=== PATIENT | female | born 1970 | race African-American/Black ===

== ENCOUNTER 2020-06-21 09:33 | Emergency (ER) | payer SELFPAY ==
[~2020-06-21] VITALS: Ht 162.6 cm; Wt 80.0 kg
[2020-06-21] MEDS ORDERED: METOPROLOL 1 MG/ML, 5ML ONE (10:27)
[2020-06-21] MEDS ORDERED: METOPROLOL 1 MG/ML, 5ML IVPush ONE (10:30)
[2020-06-21] MEDS ORDERED: SODIUM CHLORIDE FLUSH 10ML SYR IVF ONE (10:30)
[2020-06-21 10:45] LABS: BASOPHILS % (AUTO) 2 % (0-1); EOSINOPHILS % (AUTO) 2 % (1-7); LYMPHOCYTES % (AUTO) 47 % (22-44); MD NO; MEAN CORPUSCULAR HEMOGLOBIN 27.1 pg (27.0-34.8); MEAN CORPUSCULAR HGB CONC 32.8 g/dL (32.4-35.8); MEAN PLATELET VOLUME 9.6 fL (7.4-10.4); MONOCYTES % (AUTO) 7 % (2-9); NEUTROPHILS % (AUTO) 43 % (42-75); PLATELET COUNT 240 x10^3/uL (130-400); RED BLOOD COUNT 5.03 x10^6/uL (3.82-5.3); RED CELL DISTRIBUTION WIDTH 13.7 % (9.6-15.2)
[2020-06-21 10:52] LABS: ALANINE AMINOTRANSFERASE 31 U/L (12-78); ALBUMIN 4.2 g/dL (3.4-5.0); ANION GAP 4 mmol/L (5-15); CALCIUM 8.9 mg/dL (8.5-10.1); CHLORIDE 107 mmol/L (98-107); CREATININE 0.81 mg/dL (0.55-1.02)
[2020-06-21 10:54] LABS: ALKALINE PHOSPHATASE 112 U/L (45-117); BILIRUBIN,TOTAL 0.4 mg/dL (0.2-1.0); TOTAL PROTEIN 8.7 g/dL (6.4-8.2)
[2020-06-21] MEDS ORDERED: ENALAPRILAT 1.25 MG/ML, 2ML IV ONE (11:30)
--- NOTE | 2020-06-21 11:47 | NUR ---
Pharmacy out to stock with vasotec. Will notify
[2020-06-21] MEDS ORDERED: hydrALAzine 20 MG/ML, 1ML ONE (11:52)
[2020-06-21] MEDS ORDERED: hydrALAzine 20 MG/ML, 1ML IV ONE (12:00)
[2020-06-21] MEDS ORDERED: LABETALOL 5MG/ML, 20ML IVPush ONE (13:00)
[2020-06-21] MEDS ORDERED: LABETALOL 5MG/ML, 20ML ONE (13:19)
[2020-06-21 13:45] VITALS: BP 145/61
--- NOTE | 2020-06-21 14:11 | NUR ---
PT VSS. AMBULATORY. REVIEWED DISCHARGE PAPERWORK WITH PT. NO QUESTIONS AT THIS TIME. STRESSED IMPORTANCE OF FOLLOWING UP WITH PCP. PT VERBALIZED UNDERSTANDING. PT TO RECEIVE INSURANCE RESOURCES FROM REGISTRATION AT DISCHARGE.
== END 2020-06-21 14:13 | disposition home or self-care (01) ==
LOC: ED 14:06
DX: R07.89 Other chest pain (principal); R51.9 Headache, unspecified; R42 Dizziness and giddiness; I10 Essential (primary) hypertension; Z86.73 Personal history of transient ischemic attack (TIA), and cerebral infarction without residual deficits
CPT/HCPCS: 36415; 71045; 80053; 85025; 93005; 96374; 96375; 99285; J0360